=== PATIENT | female | born 1950 | race Caucasian/White ===

== ENCOUNTER → 2024-01-11 13:10 | Outpatient (REF) | payer OTHER, SELFPAY | LOC: WDC 13:10 | PROVIDERS: ATTENDING PHYSICIAN Obstetrics & Gynecology; FAMILY PHYSICIAN Physician Assistant | DX: Z12.31 Encounter for screening mammogram for malignant neoplasm of breast (principal) | CPT/HCPCS: 77063; 77067 ==

== ENCOUNTER → 2025-01-11 13:00 | Outpatient (REF) | payer OTHER, SELFPAY | LOC: WDC 13:00 | PROVIDERS: ATTENDING PHYSICIAN Obstetrics & Gynecology; FAMILY PHYSICIAN Physician Assistant | DX: Z12.31 Encounter for screening mammogram for malignant neoplasm of breast (principal) | CPT/HCPCS: 77063; 77067 ==